=== PATIENT | male | born 1985 | race American Indian/Alaskan Native ===

== ENCOUNTER 2017-02-23 14:16 | Emergency (ER) | payer SELFPAY ==
[2017-02-23 15:04] VITALS: BP 132/86
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
== END 2017-02-23 17:24 | disposition home or self-care (01) ==
LOC: ED 14:16
DX: I10 Essential (primary) hypertension (principal); F17.200 Nicotine dependence, unspecified, uncomplicated
CPT/HCPCS: 99282

== ENCOUNTER 2018-04-01 12:08 | Emergency (ER) | payer SELFPAY ==
[2018-04-01 12:22] VITALS: BP 156/110
[2018-04-01] MEDS ORDERED: MOTRIN PO ONE (14:25)
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
== END 2018-04-01 14:40 | disposition home or self-care (01) ==
LOC: ED 12:08
DX: S83.105A Unspecified dislocation of left knee, initial encounter (principal); I10 Essential (primary) hypertension; F17.200 Nicotine dependence, unspecified, uncomplicated; W22.8XXA Striking against or struck by other objects, initial encounter; Y93.89 Activity, other specified; Y92.89 Other specified places as the place of occurrence of the external cause; Y99.8 Other external cause status
CPT/HCPCS: 99282

== ENCOUNTER 2018-08-08 07:58 | Emergency (ER) | payer BC ==
[2018-08-08 08:30] VITALS: BP 154/98
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
== END 2018-08-08 11:19 | disposition home or self-care (01) ==
LOC: ED 07:58
DX: M79.672 Pain in left foot (principal); I10 Essential (primary) hypertension; F17.200 Nicotine dependence, unspecified, uncomplicated
CPT/HCPCS: 99282